=== PATIENT | male | born 1970 | race Caucasian/White ===

== ENCOUNTER 2019-10-08 07:20 | Outpatient (CLI) | payer OTHER ==
[2019-10-08 08:23] LABS: CHOL/HDL RATIO 3.4 (<5.0); CHOLESTEROL 172 mg/dL; HDL CHOLESTEROL 50 mg/dL; LDL CHOLESTEROL,CALCULATED 103 mg/dL; LDL/HDL RATIO 2.1 (<3.6); VLDL CHOLESTEROL 19 mg/dL
== END 2019-10-08 07:21 | disposition home or self-care (01) ==
LOC: LAB 07:20
PROVIDERS: ATTEND Internal Medicine
DX: Z00.00 Encounter for general adult medical examination without abnormal findings (principal); J30.9 Allergic rhinitis, unspecified; M71.20 Synovial cyst of popliteal space [Baker], unspecified knee; E03.9 Hypothyroidism, unspecified; Z13.6 Encounter for screening for cardiovascular disorders
CPT/HCPCS: 36415; 80061; 83721; 84443

== ENCOUNTER 2020-09-22 10:55 | Outpatient (CLI) | payer OTHER ==
[2020-09-22 11:42] LABS: THYROID STIMULATING HORMONE 5.58 uIU/mL (0.34-5.60)
[2020-09-22 12:52] LABS: ESTIMATED AVERAGE GLUCOSE 117 mg/dL (70-100); HEMOGLOBIN A1c% 5.7 % (4.27-6.07)
[2020-09-23 10:47] LABS: HEPATITIS C ANTIBODY NON-REACTIVE (NON-REACTIVE)
== END 2020-09-22 10:56 | disposition home or self-care (01) ==
LOC: LAB 10:55
PROVIDERS: ATTEND Internal Medicine
DX: E03.9 Hypothyroidism, unspecified (principal); Z11.59 Encounter for screening for other viral diseases; Z13.1 Encounter for screening for diabetes mellitus
CPT/HCPCS: 36415; 83036; 84443; 86803

== ENCOUNTER 2020-09-23 09:47 | Outpatient (CLI) | payer OTHER ==
--- NOTE | 2020-09-23 10:30 | XRAY Report ---
PROCEDURE: Ankle 3 View RT INDICATIONS: RIGHT ANKLE PAIN TECHNIQUE: 3 views of the ankle were acquired. COMPARISON: None FINDINGS: Bones: No fractures or dislocations. Ankle mortise is normally aligned. No suspicious bony lesions . Soft tissues: No tibiotalar joint effusion. Achilles tendon appears normal. IMPRESSION: No acute ankle fracture or dislocation. Ankle mortise is intact. Reviewed by: Mendez Thompson MD on 09/23/2020 10:29 AM PDT Approved by: Mendez Thompson MD on 09/23/2020 10:29 AM PDT Station ID: [id number]
== END 2020-09-23 09:48 | disposition home or self-care (01) ==
LOC: DI 09:47
PROVIDERS: ATTEND Internal Medicine
DX: M25.571 Pain in right ankle and joints of right foot (principal)

== ENCOUNTER 2022-11-25 08:42 | Outpatient (CLI) | payer OTHER ==
[2022-11-25 09:26] LABS: THYROID STIMULATING HORMONE 5.33 uIU/mL (0.34-5.60)
== END 2022-11-25 08:43 | disposition home or self-care (01) ==
LOC: LAB 08:42
PROVIDERS: ATTEND Internal Medicine
DX: E03.9 Hypothyroidism, unspecified (principal)
CPT/HCPCS: 36415; 84443

== ENCOUNTER 2023-08-26 13:29 | Outpatient (CLI) | payer OTHER ==
[2023-08-26 14:26] LABS: THYROID STIMULATING HORMONE 4.48 uIU/mL (0.34-5.60)
== END 2023-08-26 13:30 | disposition home or self-care (01) ==
LOC: LAB 13:29
PROVIDERS: ATTEND Psychiatry & Neurology Psychiatry
DX: E03.9 Hypothyroidism, unspecified (principal)
CPT/HCPCS: 36415; 84443